=== PATIENT | female | born 1940 | race Caucasian/White ===

== ENCOUNTER 2018-09-09 13:29 | Inpatient (IN) | payer OTHER ==
[~2018-09-09] VITALS: Ht 149.9 cm; Wt 59.9 kg
[~2018-09-09 13:29] MED LIST: ADULT LOW DOSE81 MG PO; AMARYL4 MG PO; APAP500; APAP500 PO; B-100 COMPLEX1 EAC1 PO; B-COMPLEX-VITA1 EACH; BENADRYL25 MG PO; BENTYL 10 MG CA10 MG PO; CARISOPRODOL 3350 MG PO; CIPRO500 MG PO; CIPROFLOXACIN500 M3; DESYREL; ESTRACE1 MG PO; FISH OIL 1,2001 EAC3 PO; FISHOIL; FLOVENT HFA 1110 MCG INH; FLOVENT HFA 4444 MCG INH; HYOSCYAMIN125 MCG/5; IBUPROFEN 800800 M1 PO; IRON; IRON325; IRON325 PO; K-DUR 20 MEQ T20 MEQ; LEVAQUIN 500 M500 M5; LIPITOR10 MG PO; MELATONIN3 MG PO; MOBIC15 MG PO; NORCO 5-325 TA1 EACH; PAROXETINE PO; PAXIL; PAXIL20 MG PO; PERCOCET 5-3251 EACH; PERCOCET 5-3251 EACH PO; PROBIOTIC1 EAC2 PO; PROVERA2.5 MG PO; TAMSULOSIN HCL0.4 M1; TAMSULOSIN HCL0.4 M1 PER TUBE; TRAMADOL 50 MG50 MG PO; TYLENOL WITH CO1 TA1 PO; UNISOM SLEEP AI25 MG PO; VENLAFAXIN37.5 MG/1 PER TUBE; VITAMIN B-12500 MCG PO; VITAMIN D31000 UNI2 PO; VITAMIN D400 UNI1
[2018-09-09 13:42] VITALS: BP 203/89
[2018-09-09] MEDS ORDERED: ACCUNEB SO1.25 MG/1 INH (13:48)
[2018-09-09] MEDS ORDERED: FOSAMAX 70 MG T70 MG PO (13:48)
[2018-09-09] MEDS ORDERED: GABAPENTIN 100100 MG PO (13:49)
[2018-09-09] MEDS ORDERED: NEOMYC-POLYM-D3.5 GM OP (13:49)
[2018-09-09] MEDS ORDERED: VITAMIN D3400 UNIT PO (13:50)
[2018-09-09] MEDS ORDERED: TYLENOL EXTRA500 MG PO (13:50)
[2018-09-09] MEDS ORDERED: METFORMIN HCL500 MG PO (13:50)
[2018-09-09 14:02] LABS: ABSOLUTE BASOPHILS 0.1 thou/uL (0.0-0.2); ABSOLUTE EOSINOPHILS 0.1 thou/uL (0.0-0.7); ABSOLUTE MONOCYTES 0.9 thou/uL (0.0-1.2); ABSOLUTE NEUTROPHILS 4.7 thou/uL (1.6-8.1); BASOPHILS 1.2 %; EOSINOPHILS 1.8 %; HEMATOCRIT 41.6 % (37.0-47.0); HEMOGLOBIN 14.1 gm/dL (12.0-15.0); LYMPHOCYTES 25.9 %; MCHC 33.8 g/dL (28.0-37.0); MCV 94.7 fL (80.0-100.0); MPV 8.6 fl. (7.2-11.1); NUCLEATED RBCS 0 /100WBC; PLATELET COUNT* 265 thou/uL (150-400); POLYS 60.1 %; RDW-CV 13.3 % (10.5-14.5); WBC 7.8 thou/uL (4.0-11.0)
[2018-09-09 14:22] LABS: ANION GAP 11 mmol/L (7-16); BUN 13 mg/dL (7-18); CALCIUM 9.7 mg/dL (8.5-10.1); CHLORIDE 104 mmol/L (98-107); CO2 27 mmol/L (21-32); GLUCOSE 157 mg/dL (70-99); POTASSIUM 3.8 mmol/L (3.5-5.1); SODIUM 142 mmol/L (136-145); TROPONIN-I LEVEL <0.06 ng/mL (<0.06)
[2018-09-09 14:23] LABS: ALKALINE PHOSPHATASE 55 U/L (46-116); LIPASE 190 U/L (73-393); MAGNESIUM 1.9 mg/dL (1.8-2.4); NT-PRO BRAIN NAT PEPTIDE 182 pg/mL (<300); SGOT 20 U/L (15-37); SGPT 13 U/L (30-65); TOTAL BILIRUBIN 0.4 mg/dL (<0.1-1.0); TOTAL PROTEIN 7.8 g/dL (6.4-8.2)
--- NOTE | 2018-09-09 16:28 | EKG ---
[place] [address] ELECTROCARDIOGRAM REPORT Name: DONAVON CRISTINA Room: [facility]#: [id number] Admission: 09/09/18 Attend Phys: Discharge: Date of : 42 Report #: [id number] THIS REPORT FOR: //name// [facility] ED Test Date: 2018-09-09 Test Time: 13:36:26 Pat Name: DONAVON CRISTINA Department: Room: Gender: F Rehab Nursing Tech: Dangelo CHANDRA : 1940 Requested By: Timi Kumar Order Number: [id number] MD: Tello Haynes Measurements Intervals [place] Rate: 77 P: 11 KS: 162 QRS: 20 QRSD: 90 T: 23 QT: 352 QTc: 399 Interpretive Statements Sinus rhythm Atrial premature complex Baseline wander in lead(s) V2 Compared to ECG 05/01/2017 15:55:42 Atrial premature complex(es) now present T-wave abnormality no longer present Electronically Signed On 09-09-2018 16:28:21 SANIPRACTIC PHYSICIAN by Tello Haynes [email or web address] <ELECTRONICALLY SIGNED> By: Tello Haynes MD, [facility] 09/09/18 1628 1336 1336 Tello Haynes MD, [facility] /EPI
[2018-09-09 18:39] VITALS: BP 155/77
[2018-09-09 20:00] VITALS: BP 161/84
[2018-09-09] MEDS ORDERED: VITAMIN D1000 UNI1 PO (21:41)
[2018-09-09] MEDS ORDERED: B12INJ PO (21:44)
[2018-09-09] MEDS ORDERED: IRON325 PO (21:49)
[2018-09-09] MEDS ORDERED: GLUCOPHAGE XR750 MG PO (21:53)
[2018-09-09] MEDS ORDERED: AMARYL4 MG PO (21:56)
[2018-09-09] MEDS ORDERED: VITAMIN D31000 UNI2 PO (22:00)
[2018-09-09] MEDS ORDERED: FLONASE 0.05%50 MCG NASAL (22:01)
[2018-09-10] VITALS: BP 104/66
[2018-09-10 04:00] VITALS: BP 134/68
[2018-09-10 04:29] LABS: HEMATOCRIT 38.7 % (37.0-47.0); HEMOGLOBIN 12.7 gm/dL (12.0-15.0); MCH 31.2 pg (26.0-34.0); MCHC 32.9 g/dL (28.0-37.0); MCV 94.8 fL (80.0-100.0); MPV 8.5 fl. (7.2-11.1); RBC 4.08 mil/uL (4.20-5.00); WBC 7.9 thou/uL (4.0-11.0)
[2018-09-10 04:36] LABS: CALCIUM 9.3 mg/dL (8.5-10.1); POTASSIUM 4.4 mmol/L (3.5-5.1)
[2018-09-10 08:48] VITALS: BP 106/61
--- NOTE | 2018-09-10 10:09 | EKG ---
[place] [address] ELECTROCARDIOGRAM REPORT Name: DONAVON CRISTINA Room: [address] ADM IN [facility].#: [id number] Admission: 09/09/18 Attend Phys: Awa Carter Discharge: Date of : 42 Report #: [id number] THIS REPORT FOR: //name// [facility] ED Test Date: 2018-09-09 Test Time: 16:15:13 Pat Name: DONAVON CRISTINA Department: Room: [facility] Gender: F Metal Patternmaker Apprentice: Dangelo CHANDRA : 1940 Requested By: Timi Kumar Order Number: [id number] MD: Tello Haynes Measurements Intervals [place] Rate: 64 P: 25 TN: 175 QRS: 14 QRSD: 85 T: 118 QT: 437 QTc: 451 Interpretive Statements Sinus rhythm Nonspecific T abnormalities, lateral leads Compared to ECG 09/09/2018 13:36:26 T-wave abnormality now present Atrial premature complex(es) no longer present Electronically Signed On 09-10-2018 10:09:18 HYDROGRAPHIC SURVEYOR by Tello Haynes [email or web address] <ELECTRONICALLY SIGNED> By: Tello Haynes MD, FACC 09/10/18 1009 1615 1615 Tello Haynes MD, [facility] /EPI
--- NOTE | 2018-09-10 10:11 | EKG ---
[place] [address] ELECTROCARDIOGRAM REPORT Name: DONAVON CRISTINA Room: [address] ADM IN .R.#: [id number] Admission: 09/09/18 Attend Phys: Awa Carter Discharge: Date of : 42 Report #: [id number] THIS REPORT FOR: //name// [facility] Test Date: 2018-09-09 Test Time: 23:30:41 Pat Name: DONAVON CRISTINA Department: Room: [address] Gender: F Tooling Mechanic: : 1940 Requested By: Donnie Guerrero Order Number: [id number] Aspen MD: Tello Haynes Measurements Intervals [place] Rate: 82 P: 17 TN: 165 QRS: -4 QRSD: 83 T: 164 QT: 391 QTc: 457 Interpretive Statements Sinus rhythm Abnormal T, consider ischemia, lateral leads Electronically Signed On 09-10-2018 10:11:10 WELDING SETTER by Tello Haynes [email or web address] <ELECTRONICALLY SIGNED> By: Tello Haynes MD, [facility] 09/10/18 1011 2330 2330 Tello Haynes MD, FACC /EPI
--- NOTE | 2018-09-10 13:08 | EXE ---
[place] [address] STRESS ECHOCARDIOGRAM Name: DONAVON CRISTINA Room: [address] IN [facility]#: [id number] Admission: 09/09/18 Attend Phys: Donnie Guerrero Discharge: Date of : 42 Date of Service: 09/10/18 1308 Report #: [id number] THIS REPORT FOR: //name// APPROVED REPORT Study performed: 09/10/2018 11:17:26 Exam: Dobutamine Stress Echo Indication: Abnormal EKG, dizziness Patient Location: In-Patient Stress Nurse: Zoraida Glasgow RN Room #: [facility] Supervising Physician: Tello Haynes MD Status: routine Ht: 4 ft 11 in HR: 64 bpm BP: 165/88 mmHg Rhythm: NSR Medical History Medications: Losartan, ASA, Atorvastatin Allergies: PCN, cephlosporins, Trazodone Cardiac Risk Factors: HTN, DM Procedure The patient underwent a Pharmacological Stress Test using Dobutamine. Blood pressure, heart rate, and EKG were monitored. An Echocardiogram was performed by hydraulic controls technician in four stages in quad fashion. At peak stress, four selected images were obtained and placed side by side with resting images for comparison. Stress Test Details Stress Test: Pharmacological Stress Test using Dobutamine. HR Resting HR: 64 bpm Max Heart Rate (APMHR): 143 bpm Max HR Achieved: 138 bpm Target HR (85% APMHR): 121 bpm % of APMHR: 96 Recovery HR: 76 bpm HR response to stress: Normal HR response to stress BP Resting BP: 165/88 mmHg Max BP: 168/79 mmHg Recovery BP: 151/70 [place] [address] STRESS ECHOCARDIOGRAM Name: DONAVON CRISTINA Room: [address]#: [id number] Admission: 09/09/18 Attend Phys: Donnie Guerrero Discharge: Date of : 42 Date of Service: 09/10/18 1308 Report #: [id number] BP response to stress: Normal blood pressure response to stress. ECG Resting ECG: Sinus Rhythm Stress ECG: Sinus Tachycardia ST Change: Normal Maximum ST Deviation: 0 mm Arrhythmia: VPC's Recovery ECG: Sinus Rhythm, nonspecific ST-T abnormalities Recovery ST Change: Horizontal ST depression Recovery ST Deviation: 0.5 mm Recovery Arrhythmia: None Clinical Reason for Termination: Completed protocol Pre-Stress Echo The resting Echocardiogram showed normal left ventricular contractility with an estimated Ejection Fraction of about 60-65%. Post-Stress Echo The stress Echocardiogram showed normal left ventricular contractility with an estimated Ejection Fraction of about >70%. Conclusion Clinical Response: Indeterminant Stress ECG Response: Non-ischemic Stress Echo Images: Non-ischemic low risk stress echo for future cardiac events Other Information Study Quality: Good <Conclusion> low risk stress echo for future cardiac events <ELECTRONICALLY SIGNED> By: Tello Haynes MD, [facility] 09/10/18 1308 1308 1308 Tello Haynes MD, FAC /INF
--- NOTE | 2018-09-10 15:40 | EKG ---
[place] [address] ELECTROCARDIOGRAM REPORT Name: DONAVON CRISTINA Room: [address] ADM IN R.#: [id number] Admission: 09/09/18 Attend Phys: Awa Carter Discharge: Date of : 42 Report #: [id number] THIS REPORT FOR: //name// [facility] Test Date: 2018-09-10 Test Time: 08:41:42 Pat Name: DONAVON CRISTINA Department: Room: [address] Gender: F Business Support Administrator: : 1940 Requested By: Tello Haynes Order Number: [id number] Aspen MD: Tello Haynes Measurements Intervals [place] Rate: 69 P: 8 HI: 165 QRS: 9 QRSD: 84 T: 89 QT: 401 QTc: 430 Interpretive Statements Sinus rhythm Borderline T wave abnormalities Compared to ECG 09/09/2018 23:30:41 Possible ischemia no longer present T-wave abnormality still present Electronically Signed On 09-10-2018 15:39:48 CONTRACTS MANAGER by Tello Haynes [email or web address] <ELECTRONICALLY SIGNED> By: Tello Haynes MD, [facility] 09/10/18 1539 0841 0841 Tello Haynes MD, [facility] /EPI
[2018-09-10 15:46] VITALS: BP 128/74
[2018-09-10] MEDS ORDERED: OMEPRAZOLE 20 M20 M1 PO (17:05)
[2018-09-10 17:35] VITALS: BP 128/74
--- NOTE | 2018-09-19 15:08 | CON ---
[address] [address] CONSULTATION Name: DONAVON CRISTINA Room: [address] IN .R.#: [id number] Admission: 09/09/18 Attend Phys: Awa Carter Discharge: 09/10/18 Date of : 42 Report #: [id number] THIS REPORT FOR: //name// CC: Jordan Guerrero DATE OF SERVICE: 09/10/2018 HISTORY OF PRESENT ILLNESS: The patient is a 78-year-old white female who was admitted yesterday complaining of back pain. The patient has no previous history of heart disease. She does complain that she feels tired all the time. She also complains being short of breath all the time. She has had no previous cardiac evaluation. She states that she was doing well until she woke up two nights ago with back pain. She went to see a nurse practitioner yesterday at the [facility]. Her blood pressure was elevated and her blood sugar was elevated. She was sent to the Emergency Room. She was admitted last night because of an abnormal ECG. Last night in bed, she felt a pressure in her chest with some belching. It did not radiate into her jaw or arms. Denied any associated shortness of breath or diaphoresis. She has had no recent cough, edema or bleeding. She denied any palpitation or syncope. She does have problems with balance and has to ambulate with a cane. PAST MEDICAL HISTORY: She has had no major surgical procedures. She has a history of diabetes, hyperlipidemia. MEDICATIONS: Consists of aspirin, estradiol, medroxyprogesterone, metformin, Lipitor, glimepiride, Paxil, Neurontin. ALLERGIES: SHE HAS ALLERGY TO PENICILLIN, TRAZODONE, CEPHALOSPORINS. FAMILY HISTORY: Her brother had a heart attack. SOCIAL HISTORY: She is . She and her live in [place]. Her actually had coronary stents here at [facility]. No smoking or alcohol abuse. REVIEW OF SYSTEMS: She has been told in the past she has fibromyalgia. No history of stroke or asthma. She has a hiatal hernia. No liver disease. She has had kidney stones. No cancer. No psychiatric illness. No chronic skin condition. PHYSICAL EXAMINATION: GENERAL: She is an elderly frail appearing female, lying in bed. She appeared in no distress. VITAL SIGNS: She had a blood pressure initially 160/80, currently it is 110, pulse 78. [place] [address] CONSULTATION Name: DONAVON CRISTINA Room: [address]#: [id number] Admission: 09/09/18 Attend Phys: Awa Carter Discharge: 09/10/18 Date of : 42 Report #: [id number] HEENT: She is anicteric. Conjunctivae pink. Mucous membranes moist. NECK: Veins do not appear distended. No carotid bruits. Neck supple. CHEST: Clear to auscultation. CARDIOVASCULAR: Regular rate and rhythm without murmur. ABDOMEN: Soft. EXTREMITIES: Had no edema. Dorsalis pedis pulse 2+ bilaterally. SKIN: Warm, dry. NEUROLOGIC: Nonfocal. LYMPH: No adenopathy. MUSCULOSKELETAL: No joint effusion. LABORATORY DATA: Her ECG showed a sinus rhythm, occasional PAC, nonspecific ST-segment changes were noted. Her workup so far in the Emergency Room, she had a portable chest x-ray that showed normal heart size, clear lung wagner. Otherwise, there was noted to be a large hiatal hernia. Said she had a CT scan of the chest using the PE protocol in 04/2017 that showed a large hiatal hernia. She had lab work yesterday, sodium 141, BUN 16, creatinine 1.0, glucose 197. Troponin less than 0.06. BNP 182. Her white blood cell count 7.9, hemoglobin 12.7, hematocrit 38.7. IMPRESSION AND RECOMMENDATIONS: 1. Chest burning. Suspect noncardiac. Because of risk factors, I would recommend stress testing. Because of her difficulty ambulating, I will consider a dobutamine stress echo. 2. Back pain. Suspect musculoskeletal. 3. Diabetes. The patient is on multiple medications. 4. Hyperlipidemia. The patient is on a statin drug. 5. Hiatal hernia. 6. History of kidney stones. <ELECTRONICALLY SIGNED> By: Tello Haynes MD, [facility] 09/19/18 1508 0859 [id number] Haynes MD, FAC /nt
== END 2018-09-10 18:33 | disposition home or self-care (01) | DRG 72 ==
LOC: M.ERS 13:29 → M.2W 16:41 → M.TBA-ER 16:41 → M.2W 18:23
PROVIDERS: Emergency Medicine Emergency Medical Services; ADMIT Internal Medicine
DX: G93.41 Metabolic encephalopathy (principal); R07.9 Chest pain, unspecified; M19.90 Unspecified osteoarthritis, unspecified site; E78.5 Hyperlipidemia, unspecified; K44.9 Diaphragmatic hernia without obstruction or gangrene; K21.9 Gastro-esophageal reflux disease without esophagitis; E11.40 Type 2 diabetes mellitus with diabetic neuropathy, unspecified; M79.7 Fibromyalgia; I10 Essential (primary) hypertension; J02.9 Acute pharyngitis, unspecified; Z87.442 Personal history of urinary calculi; Z88.0 Allergy status to penicillin; Z88.8 Allergy status to other drugs, medicaments and biological substances; Z82.49 Family history of ischemic heart disease and other diseases of the circulatory system; Z79.82 Long term (current) use of aspirin; Z79.899 Other long term (current) drug therapy